=== PATIENT | female | born 1965 | race Two or more races ===

== ENCOUNTER 2017-07-07 13:49 | Emergency (ER) | payer MEDICAID ==
[~2017-07-07] VITALS: Ht 152.4 cm; Wt 71.0 kg
[2017-07-07 13:55] VITALS: BP 147/84
== END 2017-07-07 15:06 | disposition left against medical advice (07) ==
LOC: ER 13:49
DX: R55 Syncope and collapse (principal)
CPT/HCPCS: 99283